=== PATIENT | female | born 1965 ===

== ENCOUNTER 2021-02-02 10:51 | Emergency (ER) | payer SELFPAY ==
[~2021-02-02] VITALS: Ht 154.9 cm; Wt 86.2 kg
== END 2021-02-02 13:25 | disposition home or self-care (01) ==
LOC: ER1 10:51
DX: U07.1 COVID-19 (principal); Z23 Encounter for immunization; I10 Essential (primary) hypertension; Z90.49 Acquired absence of other specified parts of digestive tract
CPT/HCPCS: 99283; M0243

== ENCOUNTER → 2021-06-09 | Outpatient (CLI) | payer BC | LOC: KOH-I 14:00 → US 14:00 | DX: M79.661 Pain in right lower leg (principal); M79.89 Other specified soft tissue disorders; M71.21 Synovial cyst of popliteal space [Baker], right knee | CPT/HCPCS: 93971 ==